=== PATIENT | female | born 1955 | race Hispanic/Latino ===

== ENCOUNTER → 2019-11-06 | Outpatient (CLI) | payer OTHER | END | disposition home or self-care (01) | LOC: RAH 08:51 | PROVIDERS: ATTEND Internal Medicine | DX: N28.1 Cyst of kidney, acquired (principal); I10 Essential (primary) hypertension | CPT/HCPCS: 76770; 93975 ==

== ENCOUNTER → 2019-11-30 | Outpatient (CLI) | payer OTHER ==
[~2019-11-30] MED LIST: IOHEXOL-350 75 ML VIAL IV ONE
== END | disposition home or self-care (01) ==
LOC: RAH 08:12
PROVIDERS: ATTEND Internal Medicine
DX: K76.0 Fatty (change of) liver, not elsewhere classified (principal); N28.1 Cyst of kidney, acquired
CPT/HCPCS: 76700

== ENCOUNTER → 2020-06-19 | Outpatient (CLI) | payer OTHER | END | disposition home or self-care (01) | LOC: RAH 11:16 | PROVIDERS: ATTEND Internal Medicine Gastroenterology | DX: R14.0 Abdominal distension (gaseous) (principal); R10.13 Epigastric pain | CPT/HCPCS: 78264; A9541 ==

== ENCOUNTER 2020-11-27 00:10 | Observation (INO) | payer OTHER ==
[~2020-11-27] VITALS: Ht 154.9 cm; Wt 68.5 kg
[2020-11-27] VITALS (17 sets, daily range): BP systolic 126–210; BP diastolic 53–108
[2020-11-27 03:27] LABS: BASOPHILS % (AUTO) 0.5 % (0.0-5.0); EOSINOPHILS % (AUTO) 0.1 % (0.0-8.0); HEMATOCRIT 36.9 % (36-48); LYMPHOCYTES % (AUTO) 4.5 % (21.0-51.0); MEAN CORPUSCULAR HEMOGLOBIN 30.2 pg (27.0-33.0); MEAN CORPUSCULAR HGB CONC 33.6 g/dL (32.0-36.0); MONOCYTES % (AUTO) 2.3 % (3.0-13.0); NEUTROPHILS % (AUTO) 92.2 % (40.0-77.0); PLATELET COUNT (AUTO) 272 K/uL (130-400); RED CELL DISTRIBUTION WIDTH 12.9 % (11.0-15.5); WHITE BLOOD COUNT (AUTO) 14.6 K/uL (4.8-10.8)
[2020-11-27 03:37] LABS: PROTHROMBIN TIME 10.9 SEC (9.6-11.6)
[2020-11-27 03:39] LABS: PARTIAL THROMBOPLASTIN TIME 26.1 SEC (26.3-35.5)
[2020-11-27 03:46] LABS: B-TYPE NATRIURETIC PEPTIDE 160 pg/mL (0-100)
[2020-11-27] MEDS ORDERED: MORPHINE 2 MG SYG IVP PRN (04:00)
[2020-11-27] MEDS ORDERED: ONDANSETRON 4MG INJ IVP PRN (04:00)
[2020-11-27] MEDS ORDERED: ACETAMINOPHEN 325 MG TAB PO PRN (04:00)
[2020-11-27 04:41] LABS: ALBUMIN 3.8 g/dL (3.5-5.0); BILIRUBIN,TOTAL 0.4 mg/dL (0.2-1.0); CREATININE 0.9 mg/dL (0.5-1.5); POTASSIUM 3.5 mmol/L (3.5-5.1); TOTAL PROTEIN, SERUM 8.5 g/dL (6.0-8.3)
[2020-11-27] MEDS: LACTATED RINGERS 1000ML 1,000 ML IV SCH ×2 (06:00→22:45)
[2020-11-27] MEDS ORDERED: GLUCAGON 1MG KIT 1 MG ML IM PRN (08:00)
[2020-11-27] MEDS ORDERED: LIDOCAINE HCL-MPF 1% 2ML VIAL IV PRN ×2 (08:00)
[2020-11-27] MEDS ORDERED: LABETALOL 20MG VIAL IV PRN ×2 (08:00→14:00)
[2020-11-27] MEDS ORDERED: KCL 20 MEQ ERTAB PO PRN (08:00)
[2020-11-27] MEDS ORDERED: DEXTROSE 50%-WATER 50 ML DISP.SYRIN IV PRN (08:00)
[2020-11-27] MEDS ORDERED: POTASSIUM CHLORIDE 10% ELIXIR 20 MEQ/15 ML UDCUP PO PRN (08:00)
[2020-11-27] MEDS ORDERED: POTASSIUM CHLORIDE 20MEQ/100ML 100 ML IV PRN ×2 (08:00)
[2020-11-27] MEDS: FAMOTIDINE 20MG VIAL IV SCH (08:59)
[2020-11-27] MEDS ORDERED: HYDR25TA PO (11:23)
[2020-11-27] MEDS ORDERED: LOSA50TA64 PO (11:23)
[2020-11-27] MEDS ORDERED: OMEP40CA21 PO (11:23)
[2020-11-27] MEDS ORDERED: FERR325T22 PO (11:23)
[2020-11-27] MEDS ORDERED: METF-444 PO (11:23)
[2020-11-27] MEDS ORDERED: METO100T14 PO (11:23)
[2020-11-27] MEDS ORDERED: PRAV40TA3 PO (11:23)
[2020-11-27] MEDS ORDERED: CLON0.2T PO (11:23)
[2020-11-27] MEDS ORDERED: MULT200T10 PO (11:23)
[2020-11-27] MEDS: INSULIN HUMULIN R 100 UNIT/ML 3ML SQ SCH ×2 (12:00→18:00)
[2020-11-27] MEDS ORDERED: CEFAZOLIN SODIUM 1 GM VIAL ONE (15:11)
[2020-11-27] MEDS ORDERED: LIDOCAINE PF 100MG/5ML (2%) SYRINGE 5ML ONE (17:57)
[2020-11-27] MEDS ORDERED: SUCCINYLCHOLINE CHLORIDE 20 MG/ML 10 ML VIAL ONE (17:57)
[2020-11-27] MEDS ORDERED: PROPOFOL 10 MG/ML 20ML VIAL IV ONE (17:58)
[2020-11-27] MEDS ORDERED: MIDAZOLAM HCL 1 MG/ML 2ML VIAL ONE (17:58)
[2020-11-27] MEDS ORDERED: GLYCOPYRROLATE 1 MG/5 ML SYRINGE ONE (17:58)
[2020-11-27] MEDS ORDERED: ONDANSETRON 4MG INJ ONE (17:58)
[2020-11-27] MEDS ORDERED: DEXAMETHASONE SOD PHOSPHATE 10MG/ML 1ML VIAL ONE (17:58)
[2020-11-27] MEDS ORDERED: NEOSTIGMINE 5MG/5ML SYR IV ONE (17:58)
[2020-11-27] MEDS ORDERED: ROCURONIUM 10MG/1ML SYR 10 MG/ML ML ONE (17:59)
[2020-11-27] MEDS ORDERED: FENTANYL CITRATE PF 50 MCG/1 ML 2ML VIAL ONE ×2 (17:59→21:54)
[2020-11-27] MEDS ORDERED: CEFAZOLIN SODIUM 1 GM VIAL IVP ONE (20:55)
[2020-11-27] MEDS ORDERED: ATORVASTATIN 10 MG TABLET PO SCH (21:00)
[2020-11-27] MEDS: METFORMIN HCL 500 MG TABLET PO SCH (21:00)
[2020-11-27] MEDS ORDERED: MEPERIDINE-PF 25 MG/ML SYG ONE (23:12)
[2020-11-28] VITALS (14 sets, daily range): BP systolic 111–177; BP diastolic 40–94
[2020-11-28] MEDS: LOSARTAN 50 MG TABLET PO SCH ×2 (01:05→09:31)
[2020-11-28] MEDS: METOPROLOL TARTRATE 50 MG TAB PO SCH ×2 (01:05→09:31)
[2020-11-28] MEDS: CLONIDINE HCL 0.2 MG TABLET PO SCH ×2 (01:06→09:32)
[2020-11-28] MEDS: LACTATED RINGERS 1000ML 1,000 ML IV SCH ×2 (01:08→06:17)
[2020-11-28] MEDS: FAMOTIDINE 20MG VIAL IV SCH (01:08)
[2020-11-28] MEDS: INSULIN HUMULIN R 100 UNIT/ML 3ML SQ SCH ×4 (01:41→18:00)
[2020-11-28] MEDS ORDERED: CEFAZOLIN SODIUM 1 GM VIAL IVP ONE (03:00)
[2020-11-28] MEDS ORDERED: CEFAZOLIN SODIUM 1 GM VIAL ONE (03:04)
[2020-11-28 05:10] LABS: MEAN CORPUSCULAR HEMOGLOBIN 30.1 pg (27.0-33.0); MEAN CORPUSCULAR HGB CONC 34.1 g/dL (32.0-36.0); MEAN CORPUSCULAR VOLUME 88.4 fL (79-99); RED BLOOD CELL COUNT(AUTO) 3.62 MIL/uL (4.00-5.50); RED CELL DISTRIBUTION WIDTH 12.7 % (11.0-15.5); WHITE BLOOD COUNT (AUTO) 11.1 K/uL (4.8-10.8)
[2020-11-28 05:19] LABS: HEMOGLOBIN A1C 7.2 % (4.0-6.0)
[2020-11-28 05:31] LABS: CREATININE 0.7 mg/dL (0.5-1.5); THYROID STIMULATING HORMONE 0.3 uIU/mL (0.36-3.74)
[2020-11-28 05:35] LABS: POTASSIUM 2.9 mmol/L (3.5-5.1)
[2020-11-28] MEDS: METFORMIN HCL 500 MG TABLET PO SCH ×2 (08:00→17:47)
[2020-11-28] MEDS ORDERED: FAMOTIDINE 20MG TAB PO SCH (09:00)
[2020-11-28] MEDS ORDERED: MULTIVITAMIN TABLET PO SCH (09:00)
[2020-11-28] MEDS ORDERED: HYDROCHLOROTHIAZIDE 25 MG TABLET PO SCH (09:00)
[2020-11-28] MEDS ORDERED: FERROUS SULFATE 325 MG TABLET.DR PO SCH (09:00)
[2020-11-28] MEDS: ACETAMINOPHEN 325 MG TAB PO PRN ×2 (14:27→16:20)
[2020-11-28] MEDS ORDERED: INSULIN GLARGINE 100 UNITS/ML 10 ML VIAL SQ SCH (21:00)
== END 2020-11-28 19:50 | disposition home or self-care (01) ==
LOC: EDH 00:10 → OBSVTOIN 03:39 → EDHIP 03:39 → INTOOBSV 03:39 → 3BH 22:03
PROVIDERS: ADMIT Internal Medicine Critical Care Medicine; ATTEND Internal Medicine Critical Care Medicine
DX: S42.291A Other displaced fracture of upper end of right humerus, initial encounter for closed fracture (principal); Z20.822 Contact with and (suspected) exposure to COVID-19; S00.83XA Contusion of other part of head, initial encounter; I10 Essential (primary) hypertension; E11.9 Type 2 diabetes mellitus without complications; E78.00 Pure hypercholesterolemia, unspecified; K21.9 Gastro-esophageal reflux disease without esophagitis; R11.2 Nausea with vomiting, unspecified; Z86.73 Personal history of transient ischemic attack (TIA), and cerebral infarction without residual deficits; Z79.899 Other long term (current) drug therapy; Z79.84 Long term (current) use of oral hypoglycemic drugs; W01.0XXA Fall on same level from slipping, tripping and stumbling without subsequent striking against object, initial encounter; Y93.01 Activity, walking, marching and hiking; Y92.89 Other specified places as the place of occurrence of the external cause; Y99.8 Other external cause status
CPT/HCPCS: 23470; 36415 ×2; 70486; 71045; 73020; 73030 ×2; 73090; 80048; 80053; 80061; 82550; 82948 ×7; 83036; 83880; 84132; 84443; 84484; 85025; 85027; 85610; 85730; 87635; 88305; 88311; 93005; 96361 ×3; 96374; 96375 ×2; 96376; 97039; 97116 ×2; 97161; 97530 ×2; 99285; A4649 ×2; A4930; A6219; A6223; C1776 ×2; G0378 ×8; J0330; J0690 ×3; J1100; J1815 ×4; J2001; J2175; J2250; J2405; J2704; J2710; J3010 ×2; J3480; J3490 ×5; J7030; J7040; J7120 ×2; 96365; 96366

== ENCOUNTER → 2022-05-21 | Outpatient (CLI) | payer OTHER ==
[~2022-05-21] MED LIST changes: +CLON0.2T PO; +FERR325T22 PO; -IOHEXOL-350 75 ML VIAL IV ONE; +LOSA50TA64 PO; +METF-444 PO; +METO100T14 PO; +MULT200T10 PO; +OMEP40CA21 PO; +PRAV40TA3 PO
== END | disposition home or self-care (01) ==
LOC: RAH 10:10
PROVIDERS: ATTEND Internal Medicine Gastroenterology
DX: R10.13 Epigastric pain (principal)
CPT/HCPCS: 76700